=== PATIENT | female | born 1975 | race Caucasian/White ===

== ENCOUNTER 2017-09-06 17:18 | Emergency (ER) | payer MEDICAID ==
[2017-09-06 17:27] VITALS: BP 137/89; PULSE 110; RESP 18; TEMP 98.2; O2SAT 96
--- NOTE | 2017-09-06 17:43 | EDPHY ---
H & P Smoking Status: Never smoked Time Seen by Provider: 09/06/17 17:31 HPI/ROS: CHIEF COMPLAINT: Left ankle pain HISTORY OF PRESENT ILLNESS: 41-year-old female arrives via private vehicle complaining of acute left ankle pain after she rolled her ft ankle last evening. Unable to bear weight secondary to pain. No paresthesia. No proximal injury. No fall from height. Patient arrives with her own pre- hospital crutches PHYSICAL EXAM (Prior to examination, patient consented to physical exam, hands were washed and my usual and customary physical exam procedures followed) 1) GENERAL: Well-developed, well-nourished, alert and oriented. Appears to be in no acute distress. 2) HEAD: Normocephalic 3) HEENT: Pupils equal, round, reactive to light bilaterally. 4) LUNGS: Breathing comfortably. 5) MUSCULOSKELETAL: Soft tissue swelling and tenderness to palpation lateral malleolus. proximal tibia and fibula nontender .5th MT nontender negative Tate test, compartments soft 6) SKIN: Intact 7) VASCULAR: DP,PT pulses and cap refill present and brisk DIFFERENTIAL DIAGNOSIS: in no particular order including but not limited to fracture, sprain, compartment syndrome [Procedure: Crutches Patient observed crutch walking with success, fitted for her own pre-hospital crutches Procedure: Splint A Harvey boot splint was applied by ER digital technician. After application of the splint I returned and re-examined the patient. The splint was adequately immobilizing the joint and distal to the splint the patient's circulation and sensation were intact. Patient shows no signs of compartment syndrome. Was given orthopedic precautions. (Francoise Bender) Constitutional: Initial Vital Signs Temperature (C) 36.8 C 09/06/17 17:25 Heart Rate 110 H 09/06/17 17:25 Respiratory Rate 18 09/06/17 17:25 Blood Pressure 137/89 H 18 17:25 O2 Sat (%) 96 09/06/17 17:25 O2 Delivery Mode Room Air Allergies/Adverse Reactions: Sulfa (Sulfonamide Antibiotics) Allergy (Verified 09/06/17 17:24) Home Medications: Medication Instructions Recorded NK [No Known Home Meds] 09/06/17 MDM/Departure - [facility] ED Course/Re-evaluation: Re-evaluation with serial exams. Discussed limitations of x-ray in the diagnosis of ankle sprain. Weight-bearing as tolerated tolerated. Follow up with Orthopedics. Usual and customary orthopedic precautions instructions provided. Care of patient under supervision of secondary supervising physician Dr Sushma Cordero. (NapoleonFrancoise Tegan) The patient was evaluated and managed by the physician political science research assistant. I have reviewed this chart and I agree with the findings and plan of care as documented , as indicated by my signature. I am the secondary supervising physician. ( Sushma Cordero) - Depart Disposition: Home, Routine, Self-Care Clinical Impression: Left ankle sprain Qualifiers: Encounter type: initial encounter Involved ligament of ankle: unspecified ligament Qualified Code(s): S93.402A - Sprain of unspecified ligament of left ankle, initial encounter Condition: Good Instructions: Ankle Sprain (ED) Additional Instructions: Return to the ER immediately if you experience discoloration, have worsening pain, numbness, tingling, or any other symptoms that concern you. If you received x-rays in the emergency department today, be advised, that ligamentous , tendon, muscular, and other non-bony injury cannot be fully ruled out. Try to keep your affected extremity elevated above the level of your chest, and keep cold packs on the affected area, for the next 48 hours. Referrals: Alan Mejias MD [Medical Doctor] - 5-7 days, call for appt.
== END 2017-09-06 18:11 | disposition home or self-care (01) ==
DX: S93.402A Sprain of unspecified ligament of left ankle, initial encounter (principal); X58.XXXA Exposure to other specified factors, initial encounter; Y99.8 Other external cause status
CPT/HCPCS: L4386

== ENCOUNTER → 2018-07-28 | Outpatient (CLI) | payer MEDICAID | LOC: FIMAGING 09:17 | PROVIDERS: ATTEND Family Medicine | DX: E05.90 Thyrotoxicosis, unspecified without thyrotoxic crisis or storm (principal) | CPT/HCPCS: 78014; A9516 ==

== ENCOUNTER → 2018-07-30 | Outpatient (CLI) | payer MEDICAID | LOC: FIMAGING 11:09 | PROVIDERS: ATTEND Family Medicine | DX: E04.2 Nontoxic multinodular goiter (principal) ==

== ENCOUNTER → 2018-10-21 | Outpatient (CLI) | payer MEDICAID ==
[~2018-10-21] MED LIST: LIDOCAINE 1% 300 MG/30 ML SDV ONE
== END ==
LOC: FIMAGING 12:24
PROVIDERS: ATTEND Family Medicine
PROC: 0G9K3ZX Drainage of Thyroid Gland, Percutaneous Approach, Diagnostic (ICD-10-PCS; principal; 2018-10-21)
DX: E04.1 Nontoxic single thyroid nodule (principal)